=== PATIENT | female | born 1970 | race African-American/Black ===

== ENCOUNTER → 2017-05-14 | Outpatient (CLI) | payer BC ==
[2016-04-30 12:13] VITALS: BP 151/82
--- NOTE | 2017-05-15 16:52 | RAD ---
DATE: 05/14/2017 EXAM: DIGITAL SCREEN BILAT W/CAD HISTORY: Routine screening COMPARISON: 12/08/2013 This study was interpreted with the benefit of Computerized Aided Detection (CAD). The breast parenchyma shows scattered fibroglandular densities. Breast parenchyma level B. FINDINGS: No new or enlarging breast densities are seen. Minimal benign type calcifications are present. Benign-appearing lymph node type densities are again noted in the axillary regions. IMPRESSION: Stable mammograms without evidence of malignancy. BI-RADS CATEGORY: 2 BENIGN FINDING(S) RECOMMENDED FOLLOW-UP: 12M 12 MONTH FOLLOW-UP PQRS compliance statement: Patient information was entered into a reminder system with a target due date for the next mammogram. Mammography is a sensitive method for finding small breast cancers, but it does not detect them all and is not a substitute for careful clinical examination. A negative mammogram does not negate a clinically suspicious finding and should not result in delay in biopsying a clinically suspicious abnormality. "Our facility is accredited by the [employer] Mammography [employer]."
== END | disposition home or self-care (01) ==
LOC: MAMMO 14:07
PROVIDERS: ATTEND Internal Medicine
DX: Z12.31 Encounter for screening mammogram for malignant neoplasm of breast (principal)
CPT/HCPCS: G0202; 77067

== ENCOUNTER → 2017-08-04 | Outpatient (CLI) | payer BC ==
[2016-04-30 12:13] VITALS: BP 151/82
--- NOTE | 2017-08-04 09:25 | KCIC ---
Magnetic resonance imaging (MRI) brain without contrast 08/04/2017 8:45 AM Indication: Headache with worsening severity and frequency Comparison: None available. Technical: Multiplanar, multisequence MR imaging of the brain was performed without intravenous contrast. Findings: Scalp and calvaria are intact. There are a few punctate foci of T2/FLAIR signal hyperintensity in the periventricular and subcortical white matter (e.g. left total white matter, posterior left frontal white matter, and left superior temporal gyrus, and right middle frontal gyrus). Findings are nonspecific, however may be seen in the setting of migraines. Sella and suprasellar cistern appear normal. Corpus callosum is intact. There is normal signal intensity involving the brain parenchyma with normal sahni-white matter differentiation. Brainstem is normal in appearance. Ventricles are normal in morphology without evidence for hydrocephalus. Large vessel vascular flow voids are preserved. There is no diffusion signal hyperintensity to suggest acute or subacute ischemia. There is no susceptibility artifact to suggest acute or chronic hemorrhage. Elongated appearance of the globes may be seen in setting of high myopia or glaucoma. Paranasal sinuses are well aerated. Mastoid air cells are well aerated. Visualized portion of the upper cervical spine is normal. IMPRESSION: 1. No evidence for acute or subacute ischemia. 2. A few punctate scattered foci of T2/FLAIR signal hyperintensity in the periventricular and subcortical white matter are nonspecific. Findings may be seen in the setting of migraines versus early chronic small vessel ischemic changes. These findings do not have a typical pattern for demyelinating disease. 3. Elongated appearance of the globes may be seen in setting of high myopia or glaucoma. Electronically signed by: Carey Felipe MD (08/04/2017 9:22 AM) [id number]
== END | disposition home or self-care (01) ==
LOC: KCIC MRI 08:29
PROVIDERS: ATTEND Psychiatry & Neurology Neurology with Special Qualifications in Child Neurology
DX: G43.009 Migraine without aura, not intractable, without status migrainosus (principal)
CPT/HCPCS: 70551

== ENCOUNTER 2017-11-25 10:22 | Day surgery (SDC) | payer BC ==
[2017-11-25 11:07] LABS: ADD MAN DIFF? NO
[2017-11-25 11:14] LABS: BASO % 0 % (0-3); EOS # 0.1 x10^3/uL (0.0-0.7); EOS % 1 % (0-3); HEMATOCRIT 39.8 % (36.0-47.0); HEMOGLOBIN 13.3 g/dL (12.0-15.5); LYMPH # 3.1 x10^3/uL (1.0-4.8); LYMPH % 33 % (24-48); MEAN CORPUSCULAR HEMOGLOBIN 32 pg (25-35); MEAN CORPUSCULAR HGB CONC 33 g/dL (31-37); MEAN CORPUSCULAR VOLUME 95 fL (79-100); MONO # 0.6 x10^3/uL (0.0-1.1); MONO % 7 % (0-9); NEUT # 5.5 x10^3uL (1.8-7.7); NEUT % 59 % (31-73); PLATELET COUNT 337 x10^3/uL (140-400); RED CELL DISTRIBUTION WIDTH 13.4 % (11.5-14.5); WHITE BLOOD COUNT 9.4 x10^3/uL (4.0-11.0)
[2017-11-25 11:15] LABS: NEG OBC UR NEG; POS OBC UR POS; U PREG PATIENT NEGATIVE (NEG)
[2017-11-25 11:18] LABS: ANION GAP 9 (6-14); BLOOD UREA NITROGEN 16 mg/dL (7-20); BUN/CREATININE RATIO 27 (6-20); CALCIUM 8.7 mg/dL (8.5-10.1); CARBON DIOXIDE 24 mmol/L (21-32); CHLORIDE 104 mmol/L (98-107); CREATININE 0.6 mg/dL (0.6-1.0); GFR 130.2; GLUCOSE 98 mg/dL (70-99); POTASSIUM 4.1 mmol/L (3.5-5.1); SODIUM 137 mmol/L (136-145)
[2017-11-25 11:22] LABS: PROTHROMBIN TIME PATIENT 12.6 SEC (11.7-14.0)
[2017-11-25 11:33] LABS: ALBUMIN 3.7 g/dL (3.4-5.0); ALBUMIN/GLOBULIN RATIO 0.9 (1.0-1.7); ALK PHOS 76 U/L (46-116); ALT (SGPT) 21 U/L (14-59); AST (SGOT) 16 U/L (15-37); TOTAL BILIRUBIN 0.5 mg/dL (0.2-1.0); TOTAL PROTEIN 7.7 g/dL (6.4-8.2)
[2017-11-25] MEDS: IV RINGERS,LACTATED 1000ML 1,000 ML IV (11:49)
[2017-11-25] MEDS ORDERED: fentaNYL PF VIAL 100 MCG/2 ML VIAL (12:43)
[2017-11-25] MEDS: BUPIVACAINE-EPI 0.25%-1:200000 50 ML VIAL. (13:05)
[2017-11-25] MEDS ORDERED: SEVOFLURANE 31 TO 60 MINUTES. IH (13:06)
[2017-11-25] MEDS ORDERED: PROPOFOL 20 ML IV (13:06)
[2017-11-25] MEDS ORDERED: ONDANSETRON PF 4 MG/2 ML VIAL. (13:06)
[2017-11-25] MEDS ORDERED: LIDOCAINE 1% PF 5 ML VIAL. (13:06)
[2017-11-25] MEDS ORDERED: DEXAMETHASONE SOD PHOS 20 MG/5 ML VIAL. (13:06)
[2017-11-25] MEDS: HYDROcodone/APAP 5/325MG 1 TAB TABLET PO (14:14)
== END 2017-11-25 14:43 | disposition home or self-care (01) ==
LOC: SURG 10:22
DX: S90.455A Superficial foreign body, left lesser toe(s), initial encounter (principal); D69.6 Thrombocytopenia, unspecified; I10 Essential (primary) hypertension; E11.9 Type 2 diabetes mellitus without complications
CPT/HCPCS: 28190; 36415; 80053; 81025; 85025; 85610; J0690; J1100; J2405; J2704; J3010

== ENCOUNTER → 2018-05-18 | Outpatient (CLI) | payer BC | END | disposition home or self-care (01) | LOC: MAMMO 14:48 | DX: Z12.31 Encounter for screening mammogram for malignant neoplasm of breast (principal); I10 Essential (primary) hypertension; E11.9 Type 2 diabetes mellitus without complications; E03.9 Hypothyroidism, unspecified; G43.909 Migraine, unspecified, not intractable, without status migrainosus | CPT/HCPCS: 77067 ==

== ENCOUNTER → 2019-05-19 | Outpatient (CLI) | payer BC ==
[2017-11-25 14:11] VITALS: BP 129/73
[~2019-05-19] MED LIST: CEPH500C PO; FLUT1DIS IH; HYDR-2761 PO; LEVO50TA5 PO; LISI1TAB3 PO; METF500T16 PO
--- NOTE | 2019-05-20 08:41 | RAD ---
DATE: 05/20/2019. EXAM: MAMMO CARYL SCREENING BILATERAL HISTORY: Routine screening mammogram. COMPARISON: There is mammogram from 2017. This study was interpreted with the benefit of Computerized Aided Detection (CAD). FINDINGS: Breast Density: SCATTERED The breast parenchyma shows scattered fibroglandular densities. Breast parenchyma level B. The skin and nipples are within normal limits. No suspicious calcifications, spiculated mass or area of architectural distortion. IMPRESSION: No mammographic evidence of malignancy. Stable mammogram. BI-RADS CATEGORY: 2 BENIGN FINDING(S) RECOMMENDED FOLLOW-UP: 12M 12 MONTH FOLLOW-UP PQRS compliance statement: Patient information was entered into a reminder system with a target due date for the next mammogram. Mammography is a sensitive method for finding small breast cancers, but it does not detect them all and is not a substitute for careful clinical examination. A negative mammogram does not negate a clinically suspicious finding and should not result in delay in biopsying a clinically suspicious abnormality. "Our facility is accredited by the [employer] Mammography [employer]."
== END | disposition home or self-care (01) ==
LOC: MAMMO 13:34
PROVIDERS: ATTEND Internal Medicine
DX: Z12.31 Encounter for screening mammogram for malignant neoplasm of breast (principal); N64.89 Other specified disorders of breast
CPT/HCPCS: 77063; 77067